=== PATIENT | female | born 1990 | race American Indian/Alaskan Native ===

== ENCOUNTER 2016-09-09 11:19 | Emergency (ER) | payer SELFPAY ==
[2016-09-09] MEDS ORDERED: DUONEB 0.5 MG-3 MG/3 ML SOLN IH ONE (11:35)
[2016-09-09] MEDS ORDERED: PROVENTIL IH ONE (11:38)
--- NOTE | 2016-09-09 11:38 | Emergency Department Report ---
Chief Complaint: Adult Asthma Stated Complaint: ASTHMA ATTACK Time Seen by Provider: 09/09/16 11:35 - HPI History of Present Illness: pt sob - Exam Vital Signs: Vital Signs 09/09/16 11:26 Temperature 97.0 F L Pulse Rate 81 Respiratory 28 H Rate Blood Pressure 134/100 O2 Sat by Pulse 100 Oximetry Physical Exam: tachypnea, retractions, and wheezing pt unable to speak in full sentences MSE screening note: Focused history and physical exam performed. Due to findings the following was ordered: [facility]jo [facility] ED Disposition for MSE Condition: Stable
[2016-09-09] MEDS ORDERED: ATROVENT IH ONE (11:40)
--- NOTE | 2016-09-09 14:28 | Emergency Department Report ---
ED Asthma HPI - General Chief Complaint: Adult Asthma Stated Complaint: ASTHMA ATTACK Time Seen by Provider: 09/09/16 11:35 Source: patient Mode of arrival: Wheelchair Limitations: No Limitations - History of Present Illness Initial Comments: Patient complains of a typical asthma exacerbation. She is 2 months . She's had no chest pain or leg pain or swelling. She states she's been wheezing. She did not have medicine for her home neb machine. She denies active cough fever or chills. She states after her nebulized treatments she feels fine and with like to go home. Her wheezing has now resolved. Patient states that she had chest pain "for a few seconds but doesn't have it now". Complaint: "asthma attack" -: Gradual, days(s) - Related Data Previous Rx's Medication Instructions Recorded Last Taken Type Albuterol Sulfate [Albuterol 0.63% 0.63 mg IH TID PRN #60 ml 09/09/16 Unknown Rx NEBS] Albuterol Sulfate [Ventolin HFA] 2 puff IH Q4H PRN #1 hfa.aer.ad 09/09/16 Unknown Rx predniSONE [Deltasone] 40 mg PO QDAY #10 tab 09/09/16 Unknown Rx Allergies Allergy/AdvReac Type Severity Reaction Status Date / Time No Known Allergies Allergy Unverified 09/09/16 12:32 ED Review of Systems ROS: Stated complaint: ASTHMA ATTACK Other details as noted in HPI Constitutional: denies: chills, fever Eyes: denies: eye pain, eye discharge, vision change ENT: denies: ear pain, throat pain Respiratory: no symptoms reported, wheezing. denies: cough Cardiovascular: denies: chest pain, palpitations Endocrine: no symptoms reported Gastrointestinal: denies: abdominal pain, nausea, diarrhea Genitourinary: denies: urgency, dysuria, discharge Musculoskeletal: denies: back pain, joint swelling, arthralgia Skin: denies: rash, lesions Neurological: denies: headache, weakness, paresthesias Psychiatric: denies: anxiety, depression Hematological/Lymphatic: denies: easy bleeding, easy bruising ED Past Medical Hx - Past Medical History Hx Asthma: Yes - Surgical History Past Surgical History?: No - Social History Smoking Status: Never Smoker - Medications Home Medications: Home Medications Medication Instructions Recorded Confirmed Last Taken Type Albuterol Sulfate [Albuterol 0.63% 0.63 mg IH TID PRN #60 ml 09/09/16 Unknown Rx NEBS] Albuterol Sulfate [Ventolin HFA] 2 puff IH Q4H PRN #1 hfa.aer.ad 09/09/16 Unknown Rx predniSONE [Deltasone] 40 mg PO QDAY #10 tab 09/09/16 Unknown Rx ED Physical Exam - General Limitations: No Limitations General appearance: alert, in no apparent distress - Head Head exam: Present: atraumatic, normocephalic - Eye Eye exam: Present: normal appearance, PERRL, EOMI. Absent: scleral icterus - ENT ENT exam: Present: mucous membranes moist - Neck Neck exam: Present: normal inspection - Respiratory Respiratory exam: Present: normal lung sounds bilaterally. Absent: respiratory distress - Cardiovascular Cardiovascular Exam: Present: regular rate, normal rhythm. Absent: systolic murmur, diastolic murmur, rubs, gallop - GI/Abdominal GI/Abdominal exam: Present: soft, normal bowel sounds. Absent: distended, tenderness, guarding, rebound, rigid - Extremities Exam Extremities exam: Present: normal inspection, normal capillary refill. Absent: tenderness, pedal edema, calf tenderness - Back Exam Back exam: Present: normal inspection - Neurological Exam Neurological exam: Present: alert, oriented X3 - Psychiatric Psychiatric exam: Present: normal affect, normal mood - Skin Skin exam: Present: warm, dry, intact, normal color. Absent: rash ED Course Vital Signs 09/09/16 09/09/16 09/09/16 11:26 12:13 12:15 Temperature 97.0 F L Pulse Rate 81 Respiratory 28 H Rate Blood Pressure 134/100 114/66 Blood Pressure [Right] O2 Sat by Pulse 100 100 100 Oximetry 09/09/16 09/09/16 09/09/16 12:30 12:34 12:45 Temperature 97.9 F Pulse Rate 80 87 84 Respiratory 16 20 18 Rate Blood Pressure 126/75 130/67 Blood Pressure 126/75 [Right] O2 Sat by Pulse 99 99 99 Oximetry 09/09/16 09/09/16 09/09/16 12:47 13:00 13:15 Temperature Pulse Rate 89 79 Respiratory 16 15 Rate Blood Pressure 127/73 111/59 Blood Pressure [Right] O2 Sat by Pulse 99 73 L 98 Oximetry 09/09/16 09/09/16 09/09/16 13:30 13:45 14:00 Temperature Pulse Rate 82 85 85 Respiratory 16 15 14 Rate Blood Pressure 117/57 106/57 109/59 Blood Pressure [Right] O2 Sat by Pulse 95 97 96 Oximetry - Reevaluation(s) Reevaluation #1: Patient's showed makes a mention of chest pain. She did not complain of this to me and specifically denied it. I will check an EKG prior to discharge. 09/09/16 15:02 Reevaluation #2: Patient remains asymptomatic. Her heart rate is normal her pulse oximetry is 95 -96. She can't continues to state that she doesn't have chest pain and the duration of the prior episode was a few seconds. 09/09/16 15:49 ED Medical Decision Making - EKG Data -: EKG Interpreted by Me EKG shows normal: sinus rhythm, axis, intervals, QRS complexes, ST-T waves Rate: normal - EKG Data Interpretation: normal EKG, other (one APC) Critical care attestation.: If time is entered above; I have spent that time in minutes in the direct care of this critically ill patient, excluding procedure time. ED Disposition Clinical Impression: Exacerbation of asthma Disposition: DISCHARGED TO HOME OR SELFCARE Is pt being admited?: No Does the pt Need Aspirin: No Condition: Stable Instructions: Asthma (ED), Chest Pain (ED) Additional Instructions: Return any further breathing difficulty or chest discomfort. Follow-up with primary care physician. Rx as directed. Return as needed. Prescriptions: Albuterol Sulfate [Albuterol 0.63% NEBS] 0.63 mg IH TID PRN #60 ml PRN Reason: Wheezing Albuterol Sulfate [Ventolin HFA] 2 puff IH Q4H PRN #1 hfa.aer.ad PRN Reason: Shortness Of Breath predniSONE [Deltasone] 40 mg PO QDAY #10 tab Referrals: PRIMARY CARE, [Primary Care Provider] - 3-5 Days [facility] [Provider Group] - 3-5 Days Time of Disposition: 15:50
[2016-09-09 16:34] VITALS: BP 108/67
== END 2016-09-09 16:36 | disposition home or self-care (01) ==
LOC: ED 11:19
DX: J45.901 Unspecified asthma with (acute) exacerbation (principal)
CPT/HCPCS: 93005; 93010; 96372; 99282; J2930